=== PATIENT | male | born 1970 | race Caucasian/White ===

== ENCOUNTER 2023-12-09 14:17 | Outpatient (CLI) | payer OTHER, SELFPAY | END 2023-12-09 14:18 | disposition home or self-care (01) | LOC: ANHAUDIO 14:18 | PROVIDERS: Visit Provider Otolaryngology | DX: H90.12 Conductive hearing loss, unilateral, left ear, with unrestricted hearing on the contralateral side (principal) | CPT/HCPCS: 92557; 92567 ==

== ENCOUNTER 2024-09-08 09:47 | Emergency (ER) | payer OTHER, SELFPAY ==
[2024-09-08 10:30] VITALS: BP 121/82; PULSE 76; RESP 18; TEMP 36.5; O2SAT 100
--- NOTE | 2024-09-08 10:55 | ED.URI ---
HPI - URI/Sore Throat General Chief Complaint: Upper Respiratory Infection Stated Complaint: Chest Congestion , Fever Time Seen by Provider: 09/08/24 10:38 Source: patient, family () and RN notes reviewed Mode of arrival: ambulatory Limitations: no limitations History of Present Illness HPI Narrative: Patient presents today complaining of a one-week history of sore throat, dizziness, headache, body aches, shortness of breath, cough, fatigue. States he has been having respiratory symptoms such as this on and off since June, but these symptoms have worsened over the past week. Denies fever or chest pain. He has tried Advil cold and Sinus, ibuprofen, and NyQuil with mild short-term relief. No history of asthma or COPD. He is a nonsmoker. He has not followed up with his PCP during this time. Related Data Home Medications ?Medication ?Instructions ?Recorded ?Confirmed ?Last Taken ?Type lisinopril 20 1 tablet PO DAILY 11/28/23 09/08/24 Unknown History mg-hydrochlorothiazide 12.5 mg tablet rosuvastatin 10 mg tablet 10 mg PO DAILY 11/28/23 09/08/24 Unknown History Allergies Allergy/AdvReac Type Severity Reaction Status Date / Time peanut Allergy Unknown Swelling Verified 09/08/24 10:41 Review of Systems Review of Systems: CONSTITUTIONAL: Denies fever, chills, or sweats.+ body aches, fatigue EYES: Denies visual changes, redness, or discharge. ENT: Denies rhinorrhea, congestion, or otalgia.+ sore throat CARDIOVASCULAR: Denies chest pain, palpitations, or edema. RESPIRATORY: + cough, shortness of breath GASTROINTESTINAL: Denies abdominal pain, nausea, vomiting, or diarrhea. GENITOURINARY: Denies dysuria or hematuria. SKIN: Denies rash, itching, or wounds. MUSCULOSKELETAL: Denies back pain, joint pain, or myalgia. NEUROLOGIC: Denies numbness, tingling, or weakness.+ headache, dizziness PSYCH: Denies depression or anxiety. [facility] Family History Family History Father Diabetes mellitus Hypertension Heart disease Mother Hypertension Social History Social History Smoking status: Never smoker Alcohol intake: current Substance use: never Substance use type: does not use Do You Feel Safe in your Home?: Yes Lack of Transportation: No Lack of Food: Never True Current Housing: I Have Housing Concerned About Future Housing: No Difficulty Paying Gas/Electric Bills: No Difficulty Paying for Meds: No Currently Unemployed: No Education: Bachelor's Degree Difficulty w/ Childcare or Family Care: No Comments At time of signature, I have reviewed and agree with nursing past medical, surgical, social and family history unless otherwise noted. Please see nursing chart for further information. There is no relevant family history pertinent to the presenting complaint Exam Narrative: GENERAL: Well-appearing, well-nourished, and in no acute distress. HEAD: Normocephalic, atraumatic. EYES: EOMI. No redness or drainage. Conjunctivae normal. ENT: Mucous membranes pink and moist. Nares clear. No rhinorrhea. TMs normal bilaterally. Throat normal. Uvula midline. NECK: Normal AROM. Supple. No lymphadenopathy. CHEST: No respiratory distress. Clear to auscultation. HEART: Regular rate and rhythm. No murmur appreciated. EXTREMITIES: Normal range of motion. No edema. SKIN: Warm, dry, no rash. Capillary refill normal. Normal skin turgor. NEURO: No focal deficits. Alert and oriented x3. Gait steady. PSYCH: Normal affect. No signs of depression or anxiety. Course Course Level of Care: Express Care Visit Vital Signs Vital signs: Vital Signs Temperature 97.7 F 09/08/24 10:30 Pulse Rate 76 09/08/24 10:30 Respiratory Rate 18 09/08/24 10:30 Blood Pressure 121/82 09/08/24 10:30 Pulse Oximetry 100 09/08/24 10:30 Oxygen Delivery Room Air 09/08/24 10:30 Temperature 97.7 F 09/08/24 10:30 Pulse Rate 76 09/08/24 10:30 Respiratory Rate 18 09/08/24 10:30 Blood Pressure 121/82 09/08/24 10:30 Pulse Oximetry 100 09/08/24 10:30 Oxygen Delivery Room Air 09/08/24 10:30 Reviewed MDM - URI/Sore Throat MDM Narrative Medical decision making narrative: At this time, xray is not available at this facility. Patient will be started on a course of Augmentin and prednisone to help with his symptoms. It is recommended that he follow up with his PCP when course of medication is finished Differential Diagnosis Differential diagnosis: Likely upper respiratory infection, sinusitis, viral infection and bronchitis Critical Care Time Critical Care Time Critical Care Time: No Discharge Plan Discharge Clinical Impression: Cough Qualifiers: Cough type: chronic Qualified Code(s): R05.3 - Chronic cough Patient Disposition: Home, Self-Care Condition: Stable Instructions: Acute Bronchitis (ED) Additional Instructions: Please take all medications as prescribed. Follow-up with your PCP in 1 week if symptoms are persisting. Your blood pressure was elevated above 120/80 today at Urgent Care. This puts you above the threshold for follow up. Please schedule a followup visit with your personal physician as soon as possible, for further evaluation and treatment. Even blood pressure exceeding 120/80 may indicate pre-hypertension. Patient Language: Croatian Prescriptions: New prednisone 20 mg tablet 40 mg PO DAILY 5 Days Qty: 10 0RF amoxicillin-pot clavulanate 875-125 mg tablet 1 tablet PO Q12H 7 Days Qty: 14 0RF No Action lisinopril-hydrochlorothiazide 20-12.5 mg tablet 1 tablet PO DAILY rosuvastatin 10 mg tablet 10 mg PO DAILY Follow-up/Referrals: SASAKWA, [Primary Care Provider] - Time of Disposition: 11:03
== END 2024-09-08 11:11 | disposition home or self-care (01) ==
PROVIDERS: Emergency Provider Nurse Practitioner
DX: R05.3 Chronic cough (principal)
CPT/HCPCS: 99213; G0463